=== PATIENT | female | born 1945 | race Caucasian/White ===

== ENCOUNTER 2022-10-07 08:22 | Emergency (ER) | payer OTHER, MEDICAID ==
[~2022-10-07] VITALS: Ht 172.7 cm; Wt 85.7 kg
[2022-10-07 08:22] VITALS: BP_SYST 166; PULSE 70; RESP 19; TEMP 97.7; O2SAT 96
[2022-10-07 09:28] LABS: BASOPHILS % (AUTO) 0.1 % (0.0-2.0); EOSINOPHILS % (AUTO) 0.1 % (0.0-4.0); HEMATOCRIT 35.7 % (36-48); HEMOGLOBIN 11.9 g/dL (12.0-16.0); LYMPHOCYTES # (AUTO) 1.9 K/uL (1.0-5.5); LYMPHOCYTES % (AUTO) 13.9 % (20.5-51.5); MEAN CORPUSCULAR HEMOGLOBIN 30 pg (27-31); MEAN CORPUSCULAR HGB CONC 33 % (32-36); MEAN CORPUSCULAR VOLUME 89 fL (79.0-98.0); MONOCYTES # (AUTO) 0.9 K/uL (0.0-1.0); MONOCYTES % (AUTO) 6.3 % (1.7-9.3); NEUTROPHILS # (AUTO) 10.8 K/uL (1.8-7.7); NEUTROPHILS % (AUTO) 79.6 % (40.0-70.0); PLATELET COUNT (AUTO) 248 K/uL (130-430); RED BLOOD CELL COUNT(AUTO) 4.01 MIL/uL (4.2-6.2); RED CELL DISTRIBUTION WIDTH 14.3 % (9.0-15.0); WHITE BLOOD COUNT (AUTO) 13.5 K/uL (4.8-10.8)
[2022-10-07 09:32] LABS: ERYTHROCYTE SEDIMENTATION RATE 90 MM/HR (0-20)
[2022-10-07 09:48] LABS: PROTHROMBIN TIME 10.5 SECS (9.5-12.5)
[2022-10-07 09:49] LABS: ANION GAP 11 (5-15); CALCIUM 9.6 mg/dL (8.4-11.0); CARBON DIOXIDE 26 mmol/L (23-29); CHLORIDE 96 mmol/L (98-107); CREATININE 1.05 mg/dL (0.55-1.30); GLUCOSE 149 mg/dL (74-106); POTASSIUM 3.9 mmol/L (3.5-5.1); SODIUM SERUM 133 mmol/L (136-145); UREA NITROGEN, BLOOD 15 mg/dL (8-21)
[2022-10-07 09:52] LABS: ALANINE AMINOTRANSFERASE 11 U/L (12-78); ALBUMIN 3.3 g/dL (3.4-4.8); ASPARTATE AMINOTRANSFERASE 13 U/L (10-37); TOTAL BILIRUBIN 0.5 mg/dL (0.0-1.0); TOTAL PROTEIN, SERUM 8.9 g/dL (6.4-8.3)
[2022-10-07] MEDS ORDERED: NACL 0.9% 2,000 ML IV ONE (10:15)
[2022-10-07] MEDS ORDERED: KETOROLAC TROMETHAMINE 15 MG VIAL IVP ONE (10:30)
[2022-10-07 12:55] LABS: BODY FLUID SOURCE/ TYPE SYNOVIAL; SOURCE/TYPE ,BODY FLUID SYNOVIAL
[2022-10-07 12:56] LABS: BF APPEARANCE UNSPUN SLIGHTLY CLOUDY (CLEAR); BODY FLUID COLOR YELLOW (LT YELLOW); BODY FLUID TOTAL VOLUME 2 mL; RBC, BODY FLUID 6000 /uL; WBC, BODY FLUID 556 /uL
[2022-10-07 13:11] LABS: EOSINOPHIL, BODY FLUID 0 %; LYMPHOCYTES, BODY FLUID 0 %; MONOCYTES,BODY FLUID 5 %; NEUTROPHIL, BODY FLUID 95 %
[2022-10-07] MEDS ORDERED: CEPH-548 PO (13:59)
[2022-10-07] MEDS ORDERED: ACET-2634 PO (13:59)
[2022-10-07 14:14] VITALS: BP_SYST 174; PULSE 74; RESP 16; TEMP 97.6; O2SAT 98
[2022-10-07 19:42] LABS: BODY FLUID GLUCOSE 404 mg/dL
[2022-10-07 19:43] LABS: BODY FLUID TOTAL PROTEIN 7.3 g/dL
== END 2022-10-07 14:17 | disposition home or self-care (01) ==
LOC: SED 08:22
DX: L03.115 Cellulitis of right lower limb (principal); M25.471 Effusion, right ankle; Z79.899 Other long term (current) drug therapy
CPT/HCPCS: 99284; 20605; 96374; 96361; 82947; 80053; 84157; 85025; 85610; 85651; 87040; 89051 ×2; 89060; 36415; 73610; 83605; 87070; J1885; J7030